=== PATIENT | male | born 1940 | race Caucasian/White ===

== ENCOUNTER 2022-08-14 00:15 | Emergency (ER) | payer OTHER ==
[2022-08-14 00:22] VITALS: BMI 22.9
[2022-08-14 00:29] VITALS: BP 175/83; PULSE 94; RESP 17; TEMP 98.7
[2022-08-14] MEDS ORDERED: CIPROFLOXACIN 250 MG TABLET (RESTRICTED TO ID) PO ONE ×2 (00:49→00:53)
[2022-08-14 02:54] LABS: EPI CELLS >36 /uL (0-25.1); HYALINE CASTS 1 /uL (0-3.1); PH,URINE 5.5 (5.0-8.0); URINE APPEARANCE TURBID; URINE BILIRUBIN NEGATIVE (NEGATIVE); URINE COLOR ORANGE; URINE GLUCOSE (UA) NEGATIVE (NEGATIVE); URINE KETONE NEGATIVE (NEGATIVE); URINE LEUK ESTERASE 2+ (NEGATIVE); URINE NITRITE NEGATIVE (NEGATIVE); URINE PROTEIN 2+ (NEGATIVE); URINE RBC 4974 /uL (0-23.9); URINE UROBILINOGEN 0.2 mg/dL (0.2-1.0); URINE WBC 332 /uL (0-25.8)
[2022-08-14 03:54] LABS: URINE BACTERIA 0 /uL (0-1359)
== END 2022-08-14 01:14 | disposition home or self-care (01) ==
LOC: FER 00:15
DX: R33.9 Retention of urine, unspecified (principal)
CPT/HCPCS: 81003; 87086; 99283-25

== ENCOUNTER 2022-08-14 06:05 | Emergency (ER) | payer OTHER ==
[2022-08-14 06:31] VITALS: BP 140/73; PULSE 80; RESP 16; TEMP 98.5; BMI 22.9
[2022-08-14 07:37] LABS: INR 1.15 (0.83-1.09); PROTHROMBIN TIME (PATIENT) 13.2 SEC (9.7-13.0)
[2022-08-14 07:40] LABS: MCH 31.7 pg (25.7-33.7); MCHC 34.5 g/dl (32.0-35.9); MEAN CELL VOLUME 91.9 fl (80-96); MEAN PLT VOLUME 7.6 fl (7.5-11.1); PLATELET COUNT 272.2 10^3/uL (134-434); RBC 3.16 10^6/uL (4.00-5.60); RDW 14.5 % (11.9-15.9); WHITE BLOOD COUNT 6.8 10^3/uL (4.0-10.8)
[2022-08-14 07:44] LABS: ALBUMIN 3.3 g/dl (3.4-5.0); BILIRUBIN,TOTAL 0.6 mg/dl (0.2-1); CALCIUM 9.4 mg/dl (8.5-10); CREATININE 0.7 mg/dl (0.55-1.3); TOT PROT 6.3 g/dl (6.4-8.2)
[2022-08-14 08:24] LABS: PLATELET ESTIMATE ADEQUATE
== END 2022-08-14 08:25 | disposition home or self-care (01) ==
LOC: FER 06:05
DX: R31.0 Gross hematuria (principal)
CPT/HCPCS: 0241U-QW; 36415; 80053; 85025; 85610; 99283-25

== ENCOUNTER 2023-04-15 11:12 | Inpatient (IN) | payer OTHER ==
[2023-04-15 12:14] LABS: EPI CELLS >36 /uL (0-25.1); HYALINE CASTS 30 /uL (0-3.1); PH,URINE 8.5 (5.0-8.0); URINE APPEARANCE TURBID; URINE BACTERIA 4050 /uL (0-1359); URINE BILIRUBIN 1+ (NEGATIVE); URINE COLOR DK YELLOW; URINE GLUCOSE (UA) NEGATIVE (NEGATIVE); URINE KETONE TRACE (NEGATIVE); URINE LEUK ESTERASE 3+ (NEGATIVE); URINE NITRITE NEGATIVE (NEGATIVE); URINE PROTEIN 3+ (NEGATIVE); URINE RBC 1330 /uL (0-23.9); URINE WBC 5284 /uL (0-25.8)
[2023-04-15] MEDS ORDERED: DIPHTH,PERTUSS(ACELL),TET 0.5 ML DISP.SYRIN IM ONE ×2 (13:25→13:53)
[2023-04-15 14:05] LABS: INR 1.51 (0.83-1.09); PROTHROMBIN TIME (PATIENT) 17.5 SEC (9.7-13.0)
[2023-04-15 14:07] LABS: ACTIVATED PTT 33.3 SECONDS (25.2-36.5); BASO % 0.1 % (0-2.0); HEMATOCRIT 34.2 % (35.4-49); HEMOGLOBIN 11.1 GM/dL (11.7-16.9); LYMPH % 3.6 % (8-40); MCH 29.9 pg (25.7-33.7); MCHC 32.3 g/dl (32.0-35.9); MEAN CELL VOLUME 92.4 fl (80-96); MONO % 5.7 % (3.8-10.2); NEUT % 90.6 % (42.8-82.8); PLATELET COUNT 347 10^3/uL (134-434); RDW 18.7 % (11.9-15.9); WHITE BLOOD COUNT 18.1 K/mm3 (4.0-10.0)
[2023-04-15 14:18] LABS: POTASSIUM 4.7 mmol/L (3.5-5.1)
[2023-04-15 14:21] LABS: CALCIUM 8.9 mg/dL (8.5-10.1)
[2023-04-15 14:22] LABS: ALBUMIN 2.2 g/dl (3.4-5.0); BLOOD UREA NITROGEN 33.1 mg/dL (7-18); MAGNESIUM 1.4 mg/dL (1.8-2.4)
[2023-04-15 14:25] LABS: CREATININE 2.8 mg/dL (0.55-1.3)
[2023-04-15] MEDS ORDERED: VANCOMYCIN 1 GM in D5W (PRE-DOCKED) 1,000 MG/250 ML (RESTRICTED TO ID ONLY IVPB ONE (14:25)
[2023-04-15] MEDS ORDERED: PIPERACILLIN/TAZOB 4.5 GM 4.5 GM in DEXTROSE 5%-WATER 100 ML IVPB ONE (14:25)
[2023-04-15 14:27] LABS: BILIRUBIN,TOTAL 0.6 mg/dL (0.2-1); TOT PROT 5.6 g/dl (6.4-8.2)
[2023-04-15] MEDS ORDERED: PIPERACILLIN/TAZOB 4.5 GM 4.5 GM/100 ML BAG IVPB ONE (14:36)
[2023-04-15] MEDS ORDERED: VANCOMYCIN/WATER FOR INJ (PEG) 1,000 MG/200 ML BAG IVPB ONE (15:05)
[2023-04-15] MEDS ORDERED: METOPROLOL TARTRATE 50 MG TABLET (FP) PO ONE (15:49)
[2023-04-15] MEDS ORDERED: METOPROLOL TARTRATE 50 MG TABLET (FP) ONE (15:57)
[2023-04-15] MEDS ORDERED: LACTATED RINGERS SOLUTION 1,000 ML IV SCH (16:30)
[2023-04-15] MEDS ORDERED: MAGNESIUM SULF 50% (8.12 MEQ/2 ML-1 GM VIAL) IVPB ONE (19:00)
[2023-04-15] MEDS ORDERED: PIPERACILLIN/TAZOB 2.25 GM 2.25 GM in DEXTROSE 5%-WATER - 50 ML IVPB SCH (21:00)
[2023-04-15] MEDS ORDERED: metoPROLOL SUCCINATE 25 MG TAB.SR.24H (FP) PO SCH (22:00)
[2023-04-15] MEDS: PIPERACILLIN/TAZOB 2.25 GM 2.25 GM in DEXTROSE 5%-WATER - 50 ML IVPB SCH (23:13)
[2023-04-15] MEDS: METOPROLOL TARTRATE 25 MG TABLET (FP) PO SCH (23:14)
[2023-04-15] MEDS: APIXABAN 2.5 MG TABLET PO SCH (23:14)
[2023-04-16] MEDS: PIPERACILLIN/TAZOB 2.25 GM 2.25 GM in DEXTROSE 5%-WATER - 50 ML IVPB SCH ×3 (03:07→17:23)
[2023-04-16] MEDS: METOPROLOL TARTRATE 25 MG TABLET (FP) PO SCH ×3 (05:34→22:53)
[2023-04-16 08:41] LABS: EPI CELLS 11 /uL (0-25.1); HYALINE CASTS 3 /uL (0-3.1); PH,URINE 6.5 (5.0-8.0); URINE APPEARANCE CLOUDY; URINE BACTERIA 217 /uL (0-1359); URINE BILIRUBIN NEGATIVE (NEGATIVE); URINE COLOR YELLOW; URINE GLUCOSE (UA) NEGATIVE (NEGATIVE); URINE KETONE NEGATIVE (NEGATIVE); URINE LEUK ESTERASE 3+ (NEGATIVE); URINE NITRITE NEGATIVE (NEGATIVE); URINE PROTEIN 1+ (NEGATIVE); URINE RBC 709 /uL (0-23.9); URINE UROBILINOGEN 0.2 mg/dL (0.2-1.0); URINE WBC 1301 /uL (0-25.8)
[2023-04-16] MEDS: APIXABAN 2.5 MG TABLET PO SCH (09:03)
[2023-04-16] MEDS: POLYETHYLENE GLYCOL (HEALTHYLAX) 3350 17 GM PACKET PO SCH ×2 (11:18→22:53)
[2023-04-16 11:31] LABS: BASO % 0.2 % (0-2.0); EOS % 0.9 % (0-4.5); HEMATOCRIT 31.9 % (35.4-49); HEMOGLOBIN 10.8 GM/dL (11.7-16.9); LYMPH % 3.5 % (8-40); MCH 30.9 pg (25.7-33.7); MCHC 33.7 g/dl (32.0-35.9); MEAN CELL VOLUME 91.5 fl (80-96); MEAN PLT VOLUME 7.7 fl (7.5-11.1); MONO % 6.2 % (3.8-10.2); NEUT % 89.2 % (42.8-82.8); PLATELET COUNT 303 10^3/uL (134-434); RBC 3.49 M/mm3 (4.00-5.60); RDW 18.7 % (11.9-15.9)
[2023-04-16 11:49] LABS: POTASSIUM 4.6 mmol/L (3.5-5.1)
[2023-04-16 11:54] LABS: MAGNESIUM 1.8 mg/dL (1.8-2.4)
[2023-04-16 11:55] LABS: BLOOD UREA NITROGEN 36.9 mg/dL (7-18)
[2023-04-16 11:57] LABS: PHOSPHOROUS 4.2 mg/dL (2.5-4.9)
[2023-04-16 11:58] LABS: CREATININE 2.4 mg/dL (0.55-1.3)
[2023-04-16 11:59] LABS: BILIRUBIN,TOTAL 0.5 mg/dL (0.2-1); TOT PROT 5.3 g/dl (6.4-8.2)
[2023-04-16] MEDS ORDERED: VANCOMYCIN 1 GM/200 ML PREMIX BAG (RESTRICTED TO ID ONLY) IVPB SCH (15:00)
[2023-04-16] MEDS ORDERED: VANCOMYCIN 1 GM in D5W (PRE-DOCKED) 1,000 MG/250 ML (RESTRICTED TO ID ONLY IVPB SCH (15:00)
[2023-04-16] MEDS: SODIUM CHLORIDE 1,000 ML IV SCH (19:26)
[2023-04-16] MEDS ORDERED: ENOXAPARIN NA (PORCINE) 80 MG/0.8 ML DISP.SYRIN SQ SCH (22:00)
[2023-04-16] MEDS: ENOXAPARIN NA (PORCINE) 80 MG/0.8 ML DISP.SYRIN SQ SCH (22:53)
[2023-04-17] MEDS: SODIUM CHLORIDE 1,000 ML IV SCH (03:03)
[2023-04-17] MEDS: PIPERACILLIN/TAZOB 2.25 GM 2.25 GM in DEXTROSE 5%-WATER - 50 ML IVPB SCH ×3 (03:04→17:11)
[2023-04-17] MEDS: METOPROLOL TARTRATE 25 MG TABLET (FP) PO SCH ×3 (06:03→21:59)
[2023-04-17 08:14] LABS: HEMATOCRIT 29.2 % (35.4-49); HEMOGLOBIN 9.5 GM/dL (11.7-16.9); MCH 30.6 pg (25.7-33.7); MCHC 32.6 g/dl (32.0-35.9); MEAN CELL VOLUME 93.9 fl (80-96); MEAN PLT VOLUME 8.4 fl (7.5-11.1); PLATELET COUNT 279 10^3/uL (134-434); RBC 3.11 M/mm3 (4.00-5.60); RDW 18.3 % (11.9-15.9); WHITE BLOOD COUNT 12.1 K/mm3 (4.0-10.0)
[2023-04-17 08:16] LABS: POTASSIUM 3.9 mmol/L (3.5-5.1)
[2023-04-17 08:18] LABS: ALBUMIN 1.7 g/dl (3.4-5.0); BLOOD UREA NITROGEN 33.9 mg/dL (7-18); CALCIUM 8.2 mg/dL (8.5-10.1)
[2023-04-17 08:22] LABS: CREATININE 1.8 mg/dL (0.55-1.3)
[2023-04-17 08:24] LABS: BILIRUBIN,TOTAL 0.6 mg/dL (0.2-1); TOT PROT 4.8 g/dl (6.4-8.2)
[2023-04-17] MEDS: POLYETHYLENE GLYCOL (HEALTHYLAX) 3350 17 GM PACKET PO SCH ×2 (09:08→21:59)
[2023-04-17] MEDS: LACTATED RINGERS SOLUTION 1,000 ML/1,000 ML INFUS.BAG IV SCH (12:40)
[2023-04-17] MEDS: ENOXAPARIN NA (PORCINE) 80 MG/0.8 ML DISP.SYRIN SQ SCH (21:59)
[2023-04-18] MEDS: PIPERACILLIN/TAZOB 2.25 GM 2.25 GM in DEXTROSE 5%-WATER - 50 ML IVPB SCH (02:26)
[2023-04-18] MEDS: LACTATED RINGERS SOLUTION 1,000 ML/1,000 ML INFUS.BAG IV SCH ×2 (02:26→12:53)
[2023-04-18] MEDS: METOPROLOL TARTRATE 25 MG TABLET (FP) PO SCH ×2 (05:48→13:25)
[2023-04-18 08:31] LABS: BASO % 0.4 % (0-2.0); EOS % 6.5 % (0-4.5); HEMATOCRIT 28.9 % (35.4-49); HEMOGLOBIN 9.5 GM/dL (11.7-16.9); LYMPH % 5.5 % (8-40); MCH 30.7 pg (25.7-33.7); MCHC 32.8 g/dl (32.0-35.9); MEAN CELL VOLUME 93.5 fl (80-96); MEAN PLT VOLUME 8.3 fl (7.5-11.1); MONO % 7.1 % (3.8-10.2); NEUT % 80.5 % (42.8-82.8); PLATELET COUNT 287 10^3/uL (134-434); RBC 3.09 M/mm3 (4.00-5.60); RDW 18.4 % (11.9-15.9); WHITE BLOOD COUNT 10.3 K/mm3 (4.0-10.0)
[2023-04-18 08:55] LABS: POTASSIUM 3.8 mmol/L (3.5-5.1)
[2023-04-18 08:57] LABS: CALCIUM 8.3 mg/dL (8.5-10.1)
[2023-04-18 08:58] LABS: ALBUMIN 1.7 g/dl (3.4-5.0); BLOOD UREA NITROGEN 30.2 mg/dL (7-18)
[2023-04-18 09:02] LABS: CREATININE 1.5 mg/dL (0.55-1.3)
[2023-04-18 09:03] LABS: BILIRUBIN,TOTAL 1.1 mg/dL (0.2-1); TOT PROT 4.8 g/dl (6.4-8.2)
[2023-04-18] MEDS: POLYETHYLENE GLYCOL (HEALTHYLAX) 3350 17 GM PACKET PO SCH ×2 (09:21→22:23)
[2023-04-18] MEDS: AMOX TR/POT CLAV 875MG/125MG TABLETS (FP) PO SCH ×2 (09:39→17:13)
[2023-04-18] MEDS ORDERED: AMOX TR/POT CLAV 875MG/125MG TABLETS (FP) PO SCH (17:30)
[2023-04-18] MEDS ORDERED: METOPROLOL TARTRATE 25 MG TABLET (FP) PO ONE (18:48)
[2023-04-18] MEDS: METOPROLOL TARTRATE 50 MG TABLET (FP) PO SCH (22:23)
[2023-04-19] MEDS: METOPROLOL TARTRATE 50 MG TABLET (FP) PO SCH ×3 (06:12→22:19)
[2023-04-19 08:16] LABS: HEMATOCRIT 30.1 % (35.4-49); HEMOGLOBIN 9.8 GM/dL (11.7-16.9); MCH 30.2 pg (25.7-33.7); MCHC 32.7 g/dl (32.0-35.9); MEAN CELL VOLUME 92.4 fl (80-96); MEAN PLT VOLUME 7.4 fl (7.5-11.1); PLATELET COUNT 306 10^3/uL (134-434); RBC 3.25 M/mm3 (4.00-5.60); RDW 18.3 % (11.9-15.9); WHITE BLOOD COUNT 7.9 K/mm3 (4.0-10.0)
[2023-04-19] MEDS: AMOX TR/POT CLAV 875MG/125MG TABLETS (FP) PO SCH ×2 (08:19→19:02)
[2023-04-19 08:27] LABS: INR 1.32 (0.83-1.09); PROTHROMBIN TIME (PATIENT) 15.3 SEC (9.7-13.0)
[2023-04-19 08:40] LABS: POTASSIUM 3.7 mmol/L (3.5-5.1)
[2023-04-19 08:49] LABS: CALCIUM 8.6 mg/dL (8.5-10.1)
[2023-04-19 08:50] LABS: ALBUMIN 1.8 g/dl (3.4-5.0); BLOOD UREA NITROGEN 26.4 mg/dL (7-18)
[2023-04-19 08:53] LABS: CREATININE 1.3 mg/dL (0.55-1.3)
[2023-04-19 08:55] LABS: BILIRUBIN,TOTAL 0.6 mg/dL (0.2-1); TOT PROT 5.1 g/dl (6.4-8.2)
[2023-04-19] MEDS: POLYETHYLENE GLYCOL (HEALTHYLAX) 3350 17 GM PACKET PO SCH ×2 (09:04→22:19)
[2023-04-19] MEDS ORDERED: SODIUM CHLORIDE 500 ML IV ONE (14:52)
[2023-04-19] MEDS ORDERED: IRON SUCROSE INJECTION 200 MG in SODIUM CHLORIDE 90 ML IVPB ONE (15:00)
[2023-04-19 17:30] LABS: BF WBC & OTHER NUCLEATED CELLS 3150 /mm3
[2023-04-19 19:24] LABS: BODY FLUID MONOCYTE 6 %; BODYL FLD EOSINOPHIL 3 %
[2023-04-20] MEDS: METOPROLOL TARTRATE 50 MG TABLET (FP) PO SCH ×3 (05:57→21:48)
[2023-04-20 09:49] LABS: HEMATOCRIT 29.4 % (35.4-49); HEMOGLOBIN 9.8 GM/dL (11.7-16.9); MCH 30.6 pg (25.7-33.7); MCHC 33.3 g/dl (32.0-35.9); MEAN CELL VOLUME 91.8 fl (80-96); MEAN PLT VOLUME 7.8 fl (7.5-11.1); PLATELET COUNT 284 10^3/uL (134-434); WHITE BLOOD COUNT 7.2 K/mm3 (4.0-10.0)
[2023-04-20 09:51] LABS: POTASSIUM 3.9 mmol/L (3.5-5.1)
[2023-04-20 09:54] LABS: BLOOD UREA NITROGEN 24.5 mg/dL (7-18); CALCIUM 8.6 mg/dL (8.5-10.1)
[2023-04-20 10:00] LABS: CREATININE 1.2 mg/dL (0.55-1.3)
[2023-04-20] MEDS: AMOX TR/POT CLAV 875MG/125MG TABLETS (FP) PO SCH (10:31)
[2023-04-20] MEDS: POLYETHYLENE GLYCOL (HEALTHYLAX) 3350 17 GM PACKET PO SCH ×2 (10:31→21:48)
[2023-04-20] MEDS: ALBUMIN HUMAN 25% 12.5 GM/50 ML VIAL IV SCH ×2 (16:41→20:19)
[2023-04-20] MEDS: PIPERACILLIN/TAZOB 3.375 GM 3.375 GM in DEXTROSE 5%-WATER - 50 ML IVPB SCH ×2 (16:41→18:25)
[2023-04-20] MEDS: BACITRACIN/POLYMYXIN B SULFATE 15 GM TUBE TP SCH (19:00)
[2023-04-20] MEDS: ENOXAPARIN NA (PORCINE) 80 MG/0.8 ML DISP.SYRIN SQ SCH (21:48)
[2023-04-21] MEDS: PIPERACILLIN/TAZOB 3.375 GM 3.375 GM in DEXTROSE 5%-WATER - 50 ML IVPB SCH ×3 (01:35→17:02)
[2023-04-21] MEDS: ALBUMIN HUMAN 25% 12.5 GM/50 ML VIAL IV SCH ×4 (02:44→20:37)
[2023-04-21] MEDS: METOPROLOL TARTRATE 50 MG TABLET (FP) PO SCH ×3 (05:44→21:28)
[2023-04-21] MEDS ORDERED: POVIDONE-IODINE 5% OPHTHALMIC PREP 30 ML SOLUTION ONE (07:20)
[2023-04-21] MEDS ORDERED: LIDOCAINE HCL/PF 1% SDV 5ML VIAL ONE (07:20)
[2023-04-21] MEDS ORDERED: EPINEPHrine/PF 1 MG/1 ML (1:1,000) AMPULE ONE (07:20)
[2023-04-21] MEDS ORDERED: TETRACAINE 0.5% OPHTH SOLN 2 ML BOTTLE ONE (07:20)
[2023-04-21] MEDS: BACITRACIN/POLYMYXIN B SULFATE 15 GM TUBE TP SCH (10:28)
[2023-04-21] MEDS: POLYETHYLENE GLYCOL (HEALTHYLAX) 3350 17 GM PACKET PO SCH ×3 (10:29→21:27)
[2023-04-21] MEDS: ENOXAPARIN NA (PORCINE) 80 MG/0.8 ML DISP.SYRIN SQ SCH ×2 (10:29→21:27)
[2023-04-21] MEDS: SPIRONOLACTONE 25 MG TABLET PO SCH (13:01)
[2023-04-21] MEDS: FUROSEMIDE 20 MG TABLET (FP) PO SCH (13:01)
[2023-04-21 15:07] LABS: BODY FLUID ALBUMIN 1.7 g/dL (Not Estab.)
[2023-04-22] MEDS: PIPERACILLIN/TAZOB 3.375 GM 3.375 GM in DEXTROSE 5%-WATER - 50 ML IVPB SCH ×3 (02:23→18:37)
[2023-04-22] MEDS: METOPROLOL TARTRATE 50 MG TABLET (FP) PO SCH ×3 (05:21→21:43)
[2023-04-22 10:07] LABS: BASO % 0.8 % (0-2.0); EOS % 11.9 % (0-4.5); HEMATOCRIT 29.3 % (35.4-49); HEMOGLOBIN 9.8 GM/dL (11.7-16.9); LYMPH % 9.8 % (8-40); MCH 31.2 pg (25.7-33.7); MCHC 33.4 g/dl (32.0-35.9); MEAN CELL VOLUME 93.5 fl (80-96); MEAN PLT VOLUME 8.5 fl (7.5-11.1); MONO % 6.7 % (3.8-10.2); NEUT % 70.8 % (42.8-82.8); PLATELET COUNT 308 10^3/uL (134-434); RBC 3.14 M/mm3 (4.00-5.60); RDW 17.6 % (11.9-15.9); WHITE BLOOD COUNT 6.2 K/mm3 (4.0-10.0)
[2023-04-22 10:09] LABS: INR 1.35 (0.83-1.09); PROTHROMBIN TIME (PATIENT) 15.6 SEC (9.7-13.0)
[2023-04-22] MEDS: ENOXAPARIN NA (PORCINE) 80 MG/0.8 ML DISP.SYRIN SQ SCH ×2 (10:38→21:44)
[2023-04-22] MEDS: FUROSEMIDE 20 MG TABLET (FP) PO SCH (10:38)
[2023-04-22] MEDS: POLYETHYLENE GLYCOL (HEALTHYLAX) 3350 17 GM PACKET PO SCH ×2 (10:38→21:42)
[2023-04-22] MEDS: SPIRONOLACTONE 25 MG TABLET PO SCH (10:38)
[2023-04-22] MEDS: BACITRACIN/POLYMYXIN B SULFATE 15 GM TUBE TP SCH (10:39)
[2023-04-22 11:29] LABS: ALBUMIN 2.6 g/dl (3.4-5.0); BILIRUBIN,TOTAL 0.7 mg/dL (0.2-1); BLOOD UREA NITROGEN 16.2 mg/dL (7-18); CALCIUM 8.7 mg/dL (8.5-10.1); CREATININE 1.3 mg/dL (0.55-1.3); POTASSIUM 3.5 mmol/L (3.5-5.1); TOT PROT 5.2 g/dl (6.4-8.2)
[2023-04-22 11:46] VITALS: BMI 23.1
[2023-04-23] MEDS: PIPERACILLIN/TAZOB 3.375 GM 3.375 GM in DEXTROSE 5%-WATER - 50 ML IVPB SCH ×3 (01:35→18:34)
[2023-04-23] MEDS: METOPROLOL TARTRATE 50 MG TABLET (FP) PO SCH ×3 (06:03→21:43)
[2023-04-23] MEDS: ALBUMIN HUMAN 25% 12.5 GM/50 ML VIAL IV SCH ×3 (08:58→21:07)
[2023-04-23 09:30] LABS: INR 1.31 (0.83-1.09); PROTHROMBIN TIME (PATIENT) 15.1 SEC (9.7-13.0)
[2023-04-23 09:34] LABS: BASO % 0.6 % (0-2.0); EOS % 10.5 % (0-4.5); HEMATOCRIT 32.8 % (35.4-49); LYMPH % 8.7 % (8-40); MCH 30.6 pg (25.7-33.7); MCHC 33.5 g/dl (32.0-35.9); MEAN CELL VOLUME 91.3 fl (80-96); MEAN PLT VOLUME 7.8 fl (7.5-11.1); MONO % 6.5 % (3.8-10.2); NEUT % 73.7 % (42.8-82.8); PLATELET COUNT 331 10^3/uL (134-434); RDW 18.1 % (11.9-15.9); WHITE BLOOD COUNT 6.3 K/mm3 (4.0-10.0)
[2023-04-23 09:50] LABS: POTASSIUM 3.5 mmol/L (3.5-5.1)
[2023-04-23 09:58] LABS: BLOOD UREA NITROGEN 13.8 mg/dL (7-18); CALCIUM 8.9 mg/dL (8.5-10.1)
[2023-04-23 09:59] LABS: ALBUMIN 2.4 g/dl (3.4-5.0)
[2023-04-23 10:02] LABS: CREATININE 1.3 mg/dL (0.55-1.3)
[2023-04-23 10:04] LABS: BILIRUBIN,TOTAL 0.6 mg/dL (0.2-1); TOT PROT 5.5 g/dl (6.4-8.2)
[2023-04-23] MEDS: SPIRONOLACTONE 25 MG TABLET PO SCH (10:44)
[2023-04-23] MEDS: FUROSEMIDE 20 MG TABLET (FP) PO SCH (10:44)
[2023-04-23] MEDS: POLYETHYLENE GLYCOL (HEALTHYLAX) 3350 17 GM PACKET PO SCH ×3 (10:44→23:22)
[2023-04-23] MEDS: BACITRACIN/POLYMYXIN B SULFATE 15 GM TUBE TP SCH (10:45)
[2023-04-23 22:14] VITALS: BP 146/96; PULSE 91; RESP 20; TEMP 98.9
== END 2023-04-23 22:20 | disposition short-term general hospital (02) | DRG 871 ==
LOC: JER 11:12 → JERBED 15:49 → J7W 16:51 → J8W 04-19 13:35
PROVIDERS: ADMIT Internal Medicine; ATTEND Nurse Practitioner Acute Care
PROC: 0W9G3ZX Drainage of Peritoneal Cavity, Percutaneous Approach, Diagnostic (ICD-10-PCS; principal; 2023-04-19)
DX: A41.9 Sepsis, unspecified organism (principal); K65.2 Spontaneous bacterial peritonitis; N39.0 Urinary tract infection, site not specified; N17.9 Acute kidney failure, unspecified; R18.8 Other ascites; I95.9 Hypotension, unspecified; I48.91 Unspecified atrial fibrillation; K74.60 Unspecified cirrhosis of liver; C67.9 Malignant neoplasm of bladder, unspecified; E83.42 Hypomagnesemia; N99.528 Other complication of incontinent external stoma of urinary tract; Y83.9 Surgical procedure, unspecified as the cause of abnormal reaction of the patient, or of later complication, without mention of misadventure at the time of the procedure; E78.5 Hyperlipidemia, unspecified; E86.0 Dehydration; D72.829 Elevated white blood cell count, unspecified
CPT/HCPCS: 0241U-QW; 36415; 70450-TC; 70551-TC; 71045-TC-FY; 72125-TC; 74170-TC; 74176-TC; 76937; 76942-TC; 80048; 80053; 81003; 82042; 82105; 82150; 82465; 82550; 82553; 82570; 82607; 82728; 82746; 82945; 83540; 83550; 83615; 83735; 83935; 83986; 84100; 84157; 84300; 84478; 84484; 85025; 85027; 85610; 85730; 86704; 86803; 86850; 86900; 86901; 87040; 87070; 87075; 87077; 87086; 87102; 87116; 87186; 87205; 87206; 87210; 87340; 87517; 87635; 88108; 88305-TC; 90715; 93005; 93010; 93306-TC; 93975; 97116-GP; 97162-GP; 99285-25; J1756; P9047; Q9967